=== PATIENT | female | born 1980 | race Caucasian/White ===

== ENCOUNTER 2016-11-17 17:16 | Emergency (ER) | payer SELFPAY ==
[~2016-11-17] VITALS: Ht 162.5 cm; Wt 62.1 kg
== END 2016-11-17 18:10 | disposition home or self-care (01) ==
LOC: ED 17:16
DX: S93.401A Sprain of unspecified ligament of right ankle, initial encounter (principal); F17.200 Nicotine dependence, unspecified, uncomplicated; W01.0XXA Fall on same level from slipping, tripping and stumbling without subsequent striking against object, initial encounter; Y93.89 Activity, other specified; Y92.9 Unspecified place or not applicable; Y99.9 Unspecified external cause status